=== PATIENT | female | born 1950 | race Caucasian/White ===

== ENCOUNTER → 2016-10-18 | Outpatient (CLI) | payer MEDICARE, OTHER ==
--- NOTE | 2016-10-18 13:51 | RAD ---
EXAM DESCRIPTION: Hand,Left 3 Views (accession [id number]), Hand,Right 3 Views (accession [id number]) CLINICAL HISTORY: PAIN IN LEFT HAND COMPARISON: None Available. TECHNIQUE: AP, LATERAL, AND OBLIQUE FINDINGS: Three-view both hand shows no fracture or dislocation. Moderate right and severe left degenerative arthropathy at the carpal metacarpal articulation of the thumb on each side is present. Much milder degenerative arthropathy elsewhere within the hand is present with no significant destructive process noted. There is no bone lesion. The bones are moderately osteopenic bilaterally. No radiopaque foreign body seen. IMPRESSION: 1. Generalized osteopenia of each hand with moderate right and severe left degenerative arthropathy at the base of the thumb at the carpal metacarpal articulation. 2. No acute fracture or dislocation seen. Electronically signed by: Volodymyr Ceja MD 10/18/2016 1:50 PM CDT
--- NOTE | 2016-10-18 13:51 | RAD ---
EXAM DESCRIPTION: Hand,Left 3 Views (accession [id number]), Hand,Right 3 Views (accession [id number]) CLINICAL HISTORY: PAIN IN LEFT HAND COMPARISON: None Available. TECHNIQUE: AP, LATERAL, AND OBLIQUE FINDINGS: Three-view both hand shows no fracture or dislocation. Moderate right and severe left degenerative arthropathy at the carpal metacarpal articulation of the thumb on each side is present. Much milder degenerative arthropathy elsewhere within the hand is present with no significant destructive process noted. There is no bone lesion. The bones are moderately osteopenic bilaterally. No radiopaque foreign body seen. IMPRESSION: 1. Generalized osteopenia of each hand with moderate right and severe left degenerative arthropathy at the base of the thumb at the carpal metacarpal articulation. 2. No acute fracture or dislocation seen. Electronically signed by: Volodymyr Ceja MD 10/18/2016 1:50 PM CDT
== END | disposition home or self-care (01) ==
LOC: RAD 07:58
PROVIDERS: ATTEND Orthopaedic Surgery
DX: M79.641 Pain in right hand (principal); M79.642 Pain in left hand; Z01.818 Encounter for other preprocedural examination

== ENCOUNTER 2016-10-29 05:39 | Day surgery (SDC) | payer MEDICARE, OTHER ==
--- NOTE | 2016-10-28 16:13 | HP ---
CHIEF COMPLAINT: Left hand numbness. HISTORY OF PRESENT ILLNESS: Ms. Quintanilla is a 66 year-old female with a history of numbness in the hand in association with some wrist pain. She has had no trauma relating to the onset of this. Denies any radiation of pain and denies any significant symptoms proximal to the wrist. She has been diagnosed with carpal tunnel syndrome and has requested operative intervention. After discussing the risks, benefits, and alternatives to operative intervention, she has given informed consent for that. PAST SURGICAL HISTORY: None. CURRENT MEDICATIONS: 1. Levothyroxine. 2. Hydroxychloroquine. 3. Crestor. 4. Claritin. 5. Magnesium. 6. Iron. 7. Biotin. 8. Probiotic. 9. Omeprazole. ALLERGIES: NO KNOWN DRUG ALLERGIES. CODE STATUS: FULL CODE. IMMUNIZATIONS: Up to date. FAMILY HISTORY: None pertinent to today's complaint. SOCIAL HISTORY: She does not smoke or use illicit drugs but does drink on occasion. REVIEW OF SYSTEMS: Negative except as indicated in the History of Present Illness. PHYSICAL EXAMINATION: VITAL SIGNS: Blood pressure 127/73, pulse 93, height 5' 6", weight 136. MENTAL STATUS: The patient is awake, alert, and is able to give a good history and participate in the physical. The patient is oriented to person, place and time. SKIN: Normal tone and turgor. MUSCULOSKELETAL: She has positive Tinel's and positive Phalen's. She has positive carpal compression test. There is very minor thenar atrophy. She has full hr generalist strength. She has full range of motion in all digits. She has a negative Tinel's at both elbows. The hand is warm and well perfused. She does have some minor discomfort with palpation at the first CMC joint. ASSESSMENT: 1. Carpal tunnel syndrome. PLAN: The plan at this point is for carpal tunnel release. We have discussed the risks, benefits, and alternatives to that and she has given informed consent for that. #[id number] [facility]
[2016-10-29] MEDS ORDERED: LACTATED RINGERS 1,000 ML ONE (05:57)
[2016-10-29] MEDS ORDERED: SODIUM CHL 0.9% 50ML MIN-BAG+ 50 ML IVPB ONE (05:57)
[2016-10-29] MEDS ORDERED: ceFAZolin SODIUM 1 GM VIAL ONE (05:57)
[2016-10-29] MEDS ORDERED: BUPIVACAINE 0.25% INJ 30 ML VIAL INJ ONE (06:44)
[2016-10-29] MEDS ORDERED: LIDOCAINE 1% 50 ML VIAL INJ ONE (06:44)
[2016-10-29] MEDS ORDERED: LIDOCAINE 1% 10 ML VIAL INJ ONE (07:00)
[2016-10-29] MEDS ORDERED: PROPOFOL 200 MG/20 ML VIAL IV ONE (07:00)
[2016-10-29] MEDS: VANCOMYCIN HCL INJ 1,000 MG VIAL IVPB ONE ×2 (07:24→07:29)
[2016-10-29] MEDS: ceFAZolin SODIUM 1 GM VIAL ONE ×2 (07:24→07:29)
[2016-10-29 07:53] VITALS: O2SAT 99
[2016-10-29 09:23] VITALS: BP 134/86; TEMP 97.6
--- NOTE | 2016-10-29 09:41 | OP ---
DATE OF PROCEDURE: 10/29/16 PREOPERATIVE DIAGNOSIS: 1. Carpal tunnel syndrome. POSTOPERATIVE DIAGNOSIS: 1. Carpal tunnel syndrome. PROCEDURE: 1. Carpal tunnel release. SURGEON: Brad Fitzgerald MD. SECURITY REP: Harry Cervantes CST, SA-C. ANESTHESIA: Local with sedation. COMPLICATIONS: None. FINDINGS: 1. Thickening of the transverse carpal ligament. 2. Thenar atrophy. INDICATION: The patient has a history of carpal tunnel syndrome which has been refractory to conservative measures. Because of the ongoing symptoms, she has requested operative intervention. After discussing the risks, benefits and alternatives to that, the patient has given informed consent for carpal tunnel release. PROCEDURE: The patient was brought to the Operating Room and placed in the supine position. Sedation was administered and local anesthetic was injected into the operative area under sterile conditions. After the injection of anesthetic, the arm was sterilely prepped and draped. A longitudinal incision was made directly overlying the transverse carpal ligament and blunt dissection was carried down to the ligament. The transverse carpal ligament was sharply transected along its length and a [place] elevator was used to ensure complete release of the ligament. Once release had been confirmed, the wound was thoroughly irrigated and the wound was closed with Nylon suture. A sterile dressing was placed and the patient was taken to the Day Surgery Unit. POSTOPERATIVE INSTRUCTIONS: The patient has been encouraged to do range of motion of the digits and will followup with us in three days. #[id number] [facility]
== END 2016-10-29 08:40 | disposition home or self-care (01) ==
LOC: AMB 05:39
PROVIDERS: ATTEND Orthopaedic Surgery
DX: G56.02 Carpal tunnel syndrome, left upper limb (principal); E78.5 Hyperlipidemia, unspecified; E03.9 Hypothyroidism, unspecified; K21.9 Gastro-esophageal reflux disease without esophagitis; Z79.899 Other long term (current) drug therapy
CPT/HCPCS: 01810; 64721; J0690; J3370; J3490; J7050; J7120

== ENCOUNTER 2017-04-06 05:50 | Day surgery (SDC) | payer MEDICARE, OTHER ==
[2017-04-06] MEDS ORDERED: SODIUM CHL 0.9% 50ML MIN-BAG+ 50 ML IVPB ONE (05:56)
[2017-04-06] MEDS ORDERED: LACTATED RINGERS 1,000 ML ONE (05:56)
[2017-04-06] MEDS ORDERED: ceFAZolin SODIUM 1 GM VIAL ONE ×2 (05:57→06:42)
[2017-04-06] MEDS ORDERED: VANCOMYCIN HCL INJ 1,000 MG VIAL IVPB ONE (06:42)
[2017-04-06] MEDS ORDERED: BUPIVACAINE 0.25% INJ 30 ML VIAL INJ ONE (06:42)
[2017-04-06] MEDS ORDERED: LIDOCAINE 1% 50 ML VIAL INJ ONE (06:42)
[2017-04-06 08:57] VITALS: BP 135/81; TEMP 97.9; O2SAT 99
[2017-04-06] MEDS ORDERED: PROPOFOL 200 MG/20 ML VIAL IV ONE (10:00)
--- NOTE | 2017-04-06 11:38 | OP ---
DATE OF PROCEDURE: 04/06/17 PREOPERATIVE DIAGNOSIS: 1. Carpal tunnel syndrome. POSTOPERATIVE DIAGNOSIS: 1. Carpal tunnel syndrome. PROCEDURE: 1. Carpal tunnel release. SURGEON: Brad Fitzgerald MD. BALANCER: Harry Cervantes CST, SA-C. ANESTHESIA: Local with sedation. COMPLICATIONS: None. FINDINGS: Thickening of the transverse carpal ligament with thenar atrophy. INDICATION: Ms. Quintanilla has a long history of symptoms consistent with carpal tunnel syndrome. Because of her long history and failure of conservative measures, she has requested operative intervention. After discussing the risks , benefits and alternatives to operative therapy, she has given informed consent for carpal tunnel release. PROCEDURE: The patient was brought to the Operating Room and placed in the supine position. Sedation was administered and local anesthetic was injected into the operative area under sterile conditions. After the injection of anesthetic, the arm was sterilely prepped and draped. A longitudinal incision was made directly overlying the transverse carpal ligament and blunt dissection was carried down to the ligament. The transverse carpal ligament was sharply transected along its length and a [place] elevator was used to ensure complete release of the ligament. Once release had been confirmed, the wound was thoroughly irrigated and the wound was closed with Nylon suture. A sterile dressing was placed and the patient was taken to the Day Surgery Unit. POSTOPERATIVE INSTRUCTIONS: The patient has been encouraged to do range of motion of the digits and will followup with us in two days. #[id number] [facility]
== END 2017-04-06 08:20 | disposition home or self-care (01) ==
LOC: AMB 05:50
PROVIDERS: ATTEND Orthopaedic Surgery
DX: G56.01 Carpal tunnel syndrome, right upper limb (principal); E03.9 Hypothyroidism, unspecified; K21.9 Gastro-esophageal reflux disease without esophagitis; Z88.8 Allergy status to other drugs, medicaments and biological substances; Z79.899 Other long term (current) drug therapy
CPT/HCPCS: 01810; 64721; 87070; J0690; J3370; J3490; J7050; J7120